=== PATIENT | male | born 2000 | race Two or more races ===

== ENCOUNTER 2020-04-16 04:07 | Emergency (ER) | payer MEDICAID ==
[~2020-04-16] VITALS: Ht 172.7 cm; Wt 77.3 kg
--- NOTE | 2020-04-16 04:31 | NUR ---
PT REFUSING UA AT THIS TIME.
[2020-04-16] MEDS ORDERED: AZITHROMYCIN 500 MG TABLET PO ONE (05:00)
[2020-04-16] MEDS ORDERED: AZITHROMYCIN 500 MG TABLET ONE (05:00)
[2020-04-16] MEDS ORDERED: CEFTRIAXONE 250 MG ONE (05:00)
[2020-04-16] MEDS ORDERED: CEFTRIAXONE 250 MG IM ONE (05:00)
[2020-04-16 05:29] VITALS: BP 125/93
--- NOTE | 2020-04-16 05:29 | NUR ---
PT MEDICATED PER OCT. RESTING ON [facility] MONITORING IN PLACE, CALL LIGHT WITHIN REACH.
== END 2020-04-16 06:32 | disposition home or self-care (01) ==
LOC: ED 05:15
DX: A63.0 Anogenital (venereal) warts (principal); N47.1 Phimosis; B35.6 Tinea cruris; Z59.0 Homelessness
CPT/HCPCS: 96372; 99283; J0696

== ENCOUNTER 2020-08-27 10:25 | Emergency (ER) | payer MEDICAID ==
[~2020-08-27] VITALS: Ht 165.1 cm; Wt 71.1 kg
[2020-08-27 10:28] VITALS: BP 129/81
[2020-08-27] MEDS ORDERED: ONDANSETRON ODT 8 MG ONE (11:00)
[2020-08-27] MEDS ORDERED: ONDANSETRON ODT 8 MG PO ONE (11:00)
--- NOTE | 2020-08-27 11:04 | NUR ---
given zofran per mar, water for po chlg, cxr at bedside. as
== END 2020-08-27 12:01 | disposition home or self-care (01) ==
LOC: ED 11:03
DX: B34.9 Viral infection, unspecified (principal); Z20.822 Contact with and (suspected) exposure to COVID-19; R11.2 Nausea with vomiting, unspecified; R19.7 Diarrhea, unspecified
CPT/HCPCS: 71045; 87635; 99284; Q0162